=== PATIENT | male | born 1985 | race Caucasian/White ===

== ENCOUNTER 2018-11-18 10:17 | Emergency (ER) | payer SELFPAY ==
[2018-11-18] MEDS ORDERED: HYDROCODONE/APAP 10/325 TAB ONE (11:05)
[2018-11-18 11:14] LABS: Urine Bacteria <20 /HPF (NONE SEEN); Urine Culture Reflex Order REFLEXED
--- NOTE | 2018-11-18 12:08 | ER ---
Nurse's Notes [facility] Name: Rob Chaves Age: 33 yrs Sex: Male : 1985 Arrival Date: 11/18/2018 Time: 10:20 Bed 19 Private MD: Diagnosis: Epididymitis Presentation: 11/18 10:22 Presenting complaint: Patient states: I have had testicular pain and swelling in la1 addition to burning with urination. Seen by PCP given a shot but unknown what he got, states urine was + for nitrites. Just finished amox for dental infection. Transition of care: patient was not received from another setting of care. Onset of symptoms was November 18, 2018. Risk Assessment: Do you want to hurt yourself or someone else? Patient reports no desire to harm self or others. Initial Sepsis Screen: Does the patient meet any 2 criteria? No. Patient's initial sepsis screen is negative. Does the patient have a suspected source of infection? No. Patient's initial sepsis screen is negative. Care prior to arrival: None. 10:22 Method Of Arrival: Ambulatory la1 10:22 Acuity: SHELL 3 la1 Historical: - Allergies: 10:24 No Known Allergies; la1 - PMHx: 10:24 None; la1 - Immunization history:: Adult Immunizations up to date. - Social history:: Smoking status: Patient uses tobacco products, smokes one-half pack cigarettes per day. - Ebola Screening: : No symptoms or risks identified at this time. Screenin:46 Abuse screen: Denies threats or abuse. Nutritional screening: No deficits noted. em Tuberculosis screening: No symptoms or risk factors identified. Fall Risk None identified. Assessment: 10:45 General: Appears in no apparent distress. uncomfortable, Behavior is calm, cooperative, em Denies fever. Pain: Complains of pain in suprapubic area and left testicle Pain currently is 10 out of 10 on a pain scale. Neuro: Level of Consciousness is awake, alert, obeys commands, Oriented to person, place, time, situation. Cardiovascular: Capillary refill < 3 seconds Patient's skin is warm and dry. Respiratory: Airway is patent Respiratory effort is even, unlabored, Respiratory pattern is regular, symmetrical. GI: Abdomen is flat, Bowel sounds present X 4 quads. Abd is soft X 4 quads Abdomen is tender to palpation in suprapubic area Patient currently denies nausea, vomiting. : Reports burning with urination. Derm: Skin is intact, is healthy with good turgor, Skin is pink, warm \T\ dry. Musculoskeletal: Capillary refill < 3 seconds, Range of motion: intact in all extremities. 11:00 Reassessment: Patient appears in no apparent distress at this time. I agree with above iw assessment by Ole Mariee LVN. 11:18 Reassessment: Patient appears in no apparent distress at this time. wheeled to em ultrasound via wheelchair. 11:40 Reassessment: reports pain is unchanged, provider notified, no new orders received. em 12:20 Reassessment: Patient appears in no apparent distress at this time. Patient and/or em family updated on plan of care and expected duration. Pain level reassessed. Patient is alert, oriented x 3, equal unlabored respirations, skin warm/dry/pink. Patient states symptoms have improved. Vital Signs: 10:24 BP 124 / 67; Pulse 109; Resp 16; Temp 97.8; Pulse Ox 98% on R/A; Weight 72.57 kg; la1 Height 5 ft. 9 in. (175.26 cm); Pain 9/10; 11:18 BP 121 / 71; Pulse 81; Resp 18; Pulse Ox 100% on R/A; em 10:24 Body Mass Index 23.63 (72.57 kg, 175.26 cm) la1 ED Course: 10:20 Patient arrived in ED. mr 10:22 Prisca Rooney FNP-C [facility]. kb 10:22 Mateus Gambino MD is Attending Physician. kb 10:23 Triage completed. la1 10:24 Arm band placed on left wrist. la1 10:29 Ole Mariee LVN is Primary Nurse. em 10:45 Urine collected: clean catch specimen, cloudy. em 10:46 Patient has correct armband on for positive identification. Placed in gown. Bed in low em position. Call light in reach. Pulse ox on. NIBP on. 11:48 US Scrotum Testicles In Process Unspecified. EDMS 12:24 No provider procedures requiring assistance completed. Patient did not have IV access em during this emergency room visit. Administered Medications: 10:52 Drug: [place] 10 mg-325 mg 1 tabs Route: PO; em 11:40 Follow up: Response: No adverse reaction; Pain is unchanged, physician notified em 12:14 Drug: Doxycycline 100 mg Route: PO; em 12:24 Follow up: Response: Medication administered at discharge. em 12:14 Drug: TORadol 60 mg Route: IM; Site: right gluteus; em 12:24 Follow up: Response: Medication administered at discharge. em Outcome: 12:07 Discharge ordered by . kb 12:24 Discharged to home ambulatory, with family. em 12:24 Condition: good 12:24 Discharge instructions given to patient, family, Instructed on discharge instructions, follow up and referral plans. medication usage, Demonstrated understanding of instructions, follow-up care, medications, Prescriptions given X 2. 12:26 Patient left the ED. em Signatures: Dispatcher [employer] Prisca Winston, FEDERAL APPELLATE LAW CLERK-C FEDERAL APPELLATE LAW CLERK-Ckтатьяна LaraaShalini mr Mariee, Ole, WATER REUSE PROGRAM MANAGER WATER REUSE PROGRAM MANAGER em Sunshine Barahona, Alejo Montejo RN, RN RN la1
--- NOTE | 2018-11-18 12:08 | EDPHYS ---
Physician Documentation [facility] Name: Rob Chaves Age: 33 yrs Sex: Male : 1985 Arrival Date: 11/18/2018 Time: 10:20 Bed 19 Private MD: ED Physician Mateus Gambino HPI: 11/18 11:37 This 33 yrs old Male presents to ER via Ambulatory with complaints of kb Testicular Pain, Testicular Swelling. 11:37 The patient presents with scrotal pain, of the left side, with swelling, with erythema, kb tenderness, urinary symptoms, dysuria. Onset: The symptoms/episode began/occurred 3 day(s) ago. Modifying factors: The symptoms are alleviated by nothing, the symptoms are aggravated by urinating. Associated signs and symptoms: Pertinent positives: dysuria, Pertinent negatives: abdominal pain, constipation, diarrhea, fever, hematuria, nausea, vomiting. Severity of symptoms: At their worst the symptoms were moderate, in the emergency department the symptoms are unchanged. The patient has not experienced similar symptoms in the past. The patient has not recently seen a physician. Pt reports he started having dysuria and cloudy urine 5 days ago. Was seen at a PCP office 3 days ago and given a shot of Rocephin that seemed to clear up those symptoms. States his testicle had started hurting that day. Yesterday the left testicle was swollen and painful. States he took hydrocodone that he had at home yesterday, but has had no relief of symptoms. Historical: - Allergies: 10:24 No Known Allergies; la1 - PMHx: 10:24 None; la1 - Immunization history:: Adult Immunizations up to date. - Social history:: Smoking status: Patient uses tobacco products, smokes one-half pack cigarettes per day. - Ebola Screening: : No symptoms or risks identified at this time. ROS: 12:05 Constitutional: Negative for fever, chills, and weight loss, Cardiovascular: Negative kb for chest pain, palpitations, and edema, Respiratory: Negative for shortness of breath, cough, wheezing, and pleuritic chest pain, Abdomen/GI: Negative for abdominal pain, nausea, vomiting, diarrhea, and constipation, Back: Negative for injury and pain, MS/Extremity: Negative for injury and deformity, Skin: Negative for injury, rash, and discoloration, Neuro: Negative for headache, weakness, numbness, tingling, and seizure. 12:05 : Positive for burning with urination, testicular pain Exam: 12:05 Constitutional: This is a well developed, well nourished patient who is awake, alert, kb and in no acute distress. Head/Face: Normocephalic, atraumatic. ENT: Nares patent. No nasal discharge, no septal abnormalities noted. Tympanic membranes are normal and external auditory canals are clear. Oropharynx with no redness, swelling, or masses, exudates, or evidence of obstruction, uvula midline. Mucous membranes moist. Neck: Trachea midline, no thyromegaly or masses palpated, and no cervical lymphadenopathy. Supple, full range of motion without nuchal rigidity, or vertebral point tenderness. No Meningismus. Chest/axilla: Normal chest wall appearance and motion. Nontender with no deformity. No lesions are appreciated. Cardiovascular: Regular rate and rhythm with a normal S1 and S2. No gallops, murmurs, or rubs. Normal PMI, no JVD. No pulse deficits. Respiratory: Lungs have equal breath sounds bilaterally, clear to auscultation and percussion. No rales, rhonchi or wheezes noted. No increased work of breathing, no retractions or nasal flaring. Abdomen/GI: Soft, non-tender, with normal bowel sounds. No distension or tympany. No guarding or rebound. No evidence of tenderness throughout. Back: No spinal tenderness. No costovertebral tenderness. Full range of motion. Skin: Warm, dry with normal turgor. Normal color with no rashes, no lesions, and no evidence of cellulitis. MS/ Extremity: Pulses equal, no cyanosis. Neurovascular intact. Full, normal range of motion. Neuro: Awake and alert, GCS 15, oriented to person, place, time, and situation. Cranial nerves II-XII grossly intact. Motor strength 5/5 in all extremities. Sensory grossly intact. Cerebellar exam normal. Normal gait. 12:05 : Male external genitalia: erythema, of the left testicle is seen, that is mild, penile discharge, is absent, swelling: of the left testicle is noted, testicle, that is moderate, tenderness, of the left testicle is noted, of the epididymis area, that is moderate. Vital Signs: 10:24 BP 124 / 67; Pulse 109; Resp 16; Temp 97.8; Pulse Ox 98% on R/A; Weight 72.57 kg; la1 Height 5 ft. 9 in. (175.26 cm); Pain 9/10; 11:18 BP 121 / 71; Pulse 81; Resp 18; Pulse Ox 100% on R/A; em 10:24 Body Mass Index 23.63 (72.57 kg, 175.26 cm) la1 MDM: 10:26 Patient medically screened. kb 12:05 Data reviewed: vital signs, nurses notes. Data interpreted: Pulse oximetry: on room air kb is 100 %. Interpretation: normal. Counseling: I had a detailed discussion with the patient and/or guardian regarding: the historical points, exam findings, and any diagnostic results supporting the discharge/admit diagnosis, lab results, radiology results, the need for outpatient follow up, a family practitioner, to return to the emergency department if symptoms worsen or persist or if there are any questions or concerns that arise at home. 11/18 10:42 Order name: Urine Dipstick--Ancillary (enter results) 11/18 10:46 Order name: Urine Microscopic Only 11/18 10:26 Order name: US Scrotum Testicles 11/18 10:47 Order name: Urine Microscopic Only; Complete Time: 11:15 EDMA 11/18 11:15 Order name: Urine Culture [facility] 11/18 10:26 Order name: Urine Dipstick-Ancillary (obtain specimen); Complete Time: 10:42 kb Administered Medications: 10:52 Drug: [place] 10 mg-325 mg 1 tabs Route: PO; em 11:40 Follow up: Response: No adverse reaction; Pain is unchanged, physician notified em 12:14 Drug: Doxycycline 100 mg Route: PO; em 12:24 Follow up: Response: Medication administered at discharge. em 12:14 Drug: TORadol 60 mg Route: IM; Site: right gluteus; em 12:24 Follow up: Response: Medication administered at discharge. em Disposition: 11/18/18 12:07 Discharged to Home. Impression: Epididymitis. - Condition is Stable. - Discharge Instructions: Epididymitis. - Prescriptions for Doxycycline Hyclate 100 mg Oral Tablet - take 1 tablet by ORAL route every 12 hours; 20 tablet. Diclofenac Sodium 75 mg Oral Tablet, Delayed Release (E.C.) - take 1 tablet by ORAL route 2 times per day As needed; 30 tablet. - Medication Reconciliation Form, Thank You Letter, Antibiotic Education, Prescription Opioid Use form. - Follow up: Emergency Department; When: As needed; Reason: Worsening of condition. Follow up: Private Physician; When: 2 - 3 days; Reason: Recheck today's complaints, Continuance of care, Re-evaluation by your physician. Addendum: 11/20/2018 09:38 Co-signature as Attending Physician, Mateus Gambino MD I agree with the assessment and c freedman plan of care. Signatures: Dispatcher [employer] EDMS Prisca Rooney, HIGH SCHOOL COMPUTER SCIENCE TEACHER-C HIGH SCHOOL COMPUTER SCIENCE TEACHER-Mateus Coyle MD MD cha Munoz, Edgar, BRUSH FILLER HAND BRUSH FILLER HAND Alejo Otero RN RN la1 Corrections: (The following items were deleted from the chart) 11/18 12:26 12:07 11/18/2018 12:07 Discharged to Home. Impression: Epididymitis. Condition is em Stable. Forms are Medication Reconciliation Form, Thank You Letter, Antibiotic Education, Prescription Opioid Use. Follow up: Emergency Department; When: As needed; Reason: Worsening of condition. Follow up: Private Physician; When: 2 - 3 days; Reason: Recheck today's complaints, Continuance of care, Re-evaluation by your physician. kb
[2018-11-18] MEDS ORDERED: DOXYCYCLINE 100 MG CAP PO ONE (12:27)
[2018-11-18] MEDS ORDERED: KETOROLAC 30 MG/ML INJ ONE (12:27)
--- NOTE | 2018-11-18 12:48 | RAD REPORT ---
EXAM DESCRIPTION: US - Scrotum Testicles - 11/18/2018 11:47 am CLINICAL HISTORY: Scrotal pain COMPARISON: None. FINDINGS: Homogeneous testicular tissue seen. No intratesticular abnormality. Right testicular volum e is 11.3 milliliters. Left testicular volume is 16.9 milliliters. Doppler evaluation shows normal in tratesticular blood flow. Left epididymis is enlarged and hyperemic relative to the right. No hydrocele, mass or other extratesticular abnormality. IMPRESSION: Left-side epididymitis.
[2018-11-18 12:50] LABS: Urine Blood 3+ (NEG); Urine Glucose NEGATIVE (NEG); Urine Protein TRACE (NEG); Urine Specific Gravity 1.025 (1.005-1.030); Urine pH 5.5 (5.0-7.0)
[2018-11-18] MEDS ORDERED: CARVEDILOL 6.25 MG TAB ONE (13:16)
== END 2018-11-18 12:26 | disposition home or self-care (01) ==
LOC: ER 10:17
DX: N45.1 Epididymitis (principal); F17.210 Nicotine dependence, cigarettes, uncomplicated
CPT/HCPCS: 76870; 81003; 81015; 87086; 87088; 96372; 99284